=== PATIENT | female | born 1950 | race Caucasian/White ===

== ENCOUNTER 2024-01-16 22:27 | Outpatient (CLI) | payer MEDICARE, SELFPAY ==
[2024-01-16 23:21] LABS: Basophils # 0.1 K/mm3 (0-0.2); Eosinophils % 0.5 % (0.1-12.0); Hematocrit 42.1 % (37.0-47.0); Lymphocytes # 1.3 K/mm3 (0.7-4.5); Lymphocytes % 14.3 % (10-50); Mean Corpuscular HGB Conc 33.3 g/dL (31.8-35.4); Mean Corpuscular Hemoglobin 30.9 pg (27.0-31.2); Mean Corpuscular Volume 92.9 fl (81-99); Mean Platelet Volume 10.8 fl (7.4-10.4); Monocytes # 0.3 K/mm3 (0.1-1.0); Monocytes % 3.7 % (1.7-9.3); Neutrophils % 80.5 % (37.0-80.0); Platelet Count 218 K/mm3 (142-424); Red Blood Count 4.53 M/mm3 (4.20-5.40); Red Cell Distribution Width 13.8 % (11.5-17.5); White Blood Count 8.7 K/mm3 (4.8-10.8)
[2024-01-16 23:53] LABS: Alanine Aminotransferase 23 U/L (12-78); Albumin/Globulin Ratio 1.6 (1.1-1.8); Alkaline Phosphatase 75 U/L (38-126); Anion Gap 6.7 mEq/L (5-15); Aspartate Amino Transferase 32 U/L (14-36); Bilirubin,Total 1.1 mg/dl (0.2-1.3); Blood Urea Nitrogen 22 mg/dl (7-17); Calcium 9.6 mg/dl (8.4-10.2); Carbon Dioxide 29 mmol/L (22.0-30.0); Chloride 109 mmol/L (98-107); Estimated Glomerular Filt Rate 82 ml/min (>60); GFR (African American) 99 ML/MIN (>60); Globulin 2.5 g/dL (1.3-3.2); Glucose 85 mg/dl (74-100); Potassium 3.7 mmoL/L (3.5-5.1); Sodium 141 mmol/L (136-145); Total Protein,Serum 6.5 g/dl (6.3-8.2)
[2024-01-17 00:23] LABS: Thyroid Stimulating Hormone 0.99 uIU/mL (0.465-4.68)
== END 2024-01-16 23:59 | disposition home or self-care (01) ==
LOC: LAB.DROPOF 22:29
PROVIDERS: PCP Family Medicine; Visit Provider Family Medicine
DX: R63.4 Abnormal weight loss (principal)
CPT/HCPCS: 80053; 84443; 85025

== ENCOUNTER 2024-01-31 07:58 | Outpatient (CLI) | payer MEDICARE, SELFPAY ==
--- NOTE | 2024-01-31 07:59 | CT_ITS ---
FINAL REPORT TECHNIQUE: The patient was injected with IV contrast. Axial images were obtained of the chest by computed tomography. Precontrast images were also obtained. This study was performed with techniques to keep radiation doses as low as reasonably achievable (ALARA). Individualized dose reduction techniques using automated exposure control or adjustment of mA and/or kV according to the patient's size were employed. CLINICAL HISTORY: Weight loss, HX OF CANCER COMPARISON: None FINDINGS: CT OF THE CHEST WITH AND WITHOUT CONTRAST: There is no axillary adenopathy. There is no mediastinal or hilar adenopathy. The mediastinal vasculature is well-opacified. No pulmonary artery filling defects are seen. Heart size is normal. There is a mass in the axillary tail of the right breast measuring 2.4 x 1.8 cm. There is no pericardial or pleural effusion identified. There is a small noncalcified nodule at the left lung base measuring 4 mm and best seen on image 62 of series 11. This nodule is indeterminate but in a patient with a history of known malignancy, metastasis is not entirely excluded. IMPRESSION: Mass axillary tail right breast, likely related to patient's known neoplasm. Left base 4 mm nodule, metastasis not entirely excluded. 6 to 12-month follow-up recommended. Reviewed, Interpreted and Dictated by Erasmo Murray MD Transcribed by Madeline Chau Authenticated and [facility]
--- NOTE | 2024-01-31 07:59 | CT_ITS ---
FINAL REPORT TECHNIQUE: Axial images through the abdomen and pelvis were performed. This study was performed with techniques to keep radiation doses as low as reasonably achievable, (ALARA). Individualized dose reduction techniques using automated exposure control or adjustment of mA and/or kV according to the patient's size were employed. CLINICAL HISTORY: Weight loss COMPARISON: None FINDINGS: CT ABDOMEN PELVIS WITH AND WITHOUT CONTRAST: The lung bases are clear. There is a well-circumscribed cyst in the right lobe of the liver, measuring 2 cm in diameter. Multiple gallstones are noted within the gallbladder. The spleen is unremarkable. The adrenals are normal. The pancreas is unremarkable. The kidneys enhance appropriately. Precontrast enhanced images reveal a tiny nonobstructing stone in the lower pole of the left kidney. There is prominence in the left renal hilum, that likely represents parapelvic cysts, although mild UPJ obstruction can produce a similar appearance. No left ureteral dilatation is identified. Aortic calcifications are noted. Multiple calcified phleboliths are present in the pelvis. IMPRESSION: Well-circumscribed cyst in the right lobe of the liver. Multiple gallstones are present in the gallbladder. Prominence of the left renal pelvis, likely parapelvic cysts although mild UPJ obstruction can produce a similar appearance. The left ureter does not appear dilated. Reviewed, Interpreted and Dictated by Erasmo Murray MD Transcribed by Terri Ye Authenticated and [facility]
--- NOTE | 2024-01-31 07:59 | CT_ITS ---
FINAL REPORT CLINICAL HISTORY: Weight loss, history of cancer COMPARISON: None FINDINGS: TECHNIQUE: Multiple axial CT sections were performed from the foramen magnum to the vertex. Coronal reformatted images were also obtained. Precontrast and postcontrast injection images were obtained. This study was performed with technique to keep radiation doses as low as reasonably achievable, (ALARA). Individualized dose reduction techniques using automated exposure control or adjustment of mA and/or kV according to the patient size were employed. FINDINGS: Mild atrophy is noted. The ventricles are normal in size. There is no evidence of hemorrhage. No masses are identified. No extra-axial fluid collection is seen. The paranasal sinuses are well aerated. No osseous abnormality is seen on the bone window images. Postcontrast images demonstrate no abnormal enhancement. IMPRESSION: Mild atrophy without acute intracranial abnormality. Reviewed, Interpreted and Dictated by Erasmo Murray MD Transcribed by Madeline Chau Authenticated and [facility]
== END 2024-01-31 23:59 | disposition home or self-care (01) ==
LOC: RAD 07:59
PROVIDERS: PCP Family Medicine; Visit Provider Family Medicine
DX: R63.4 Abnormal weight loss; Z68.1 Body mass index [BMI] 19.9 or less, adult; R41.3 Other amnesia; Z87.820 Personal history of traumatic brain injury
CPT/HCPCS: 70470; 71270; 74178; Q9967